=== PATIENT | female | born 1985 | race Caucasian/White ===

== ENCOUNTER 2018-08-20 04:46 | Emergency (ER) | payer OTHER ==
[~2018-08-20] VITALS: Ht 162.6 cm; Wt 81.7 kg
[~2018-08-20 04:46] MED LIST: NAPROSYN500 MG PO
[2018-08-20] MEDS ORDERED: IBUPROFEN 600600 M1 PO (05:24)
[2018-08-20 05:58] VITALS: BP 117/86
== END 2018-08-20 06:02 | disposition home or self-care (01) ==
LOC: ER 04:46
DX: S60.012A Contusion of left thumb without damage to nail, initial encounter (principal); W23.1XXA Caught, crushed, jammed, or pinched between stationary objects, initial encounter; Y92.89 Other specified places as the place of occurrence of the external cause; Y93.89 Activity, other specified; Y99.8 Other external cause status

== ENCOUNTER 2020-06-29 18:39 | Emergency (ER) | payer OTHER ==
[~2020-06-29] VITALS: Ht 157.5 cm; Wt 77.1 kg
[~2020-06-29 18:39] MED LIST changes: +IBUPROFEN 600600 M1 PO
[2020-06-29] MEDS ORDERED: AMOXICILLIN 50500 MG PO (19:05)
[2020-06-29] MEDS ORDERED: NORCO 5-325 TA1 EAC2 PO (19:05)
[2020-06-29 19:18] VITALS: BP 105/81
== END 2020-06-29 19:19 | disposition home or self-care (01) ==
LOC: ER 18:39
DX: H66.92 Otitis media, unspecified, left ear (principal); Z79.1 Long term (current) use of non-steroidal anti-inflammatories (NSAID)